=== PATIENT | male | born 1955 | race Caucasian/White ===

== ENCOUNTER 2019-04-22 08:51 | Inpatient (IN) | payer SELFPAY ==
[~2019-04-22] VITALS: Ht 177.8 cm; Wt 99.4 kg
[2019-04-22] MEDS ORDERED: LIDOCAINE 2%HCL (LOCAL ANESTH.) INJ 20ML MDV ONE (09:10)
[2019-04-22] MEDS ORDERED: ANGIOMAX 250 MG VIAL IV ONE (09:11)
[2019-04-22] MEDS ORDERED: fentaNYL CITRATE 100 MCG/2 ML VL ONE (09:11)
[2019-04-22] MEDS ORDERED: IODIXANOL 320MG/ML 100ML BTL IV ONE (09:11)
[2019-04-22] MEDS ORDERED: EPINEPHrine HCL 1 MG/1 ML AMP ONE (09:12)
[2019-04-22] MEDS ORDERED: SODIUM CHL 0.9% 50 ML ONE (09:12)
[2019-04-22] MEDS ORDERED: ATROPINE SULFATE 1 MG/1 ML VIAL ONE (09:12)
[2019-04-22] MEDS ORDERED: MIDAZOLAM HCL 1MG/1ML-2 ML VIAL ONE (09:12)
[2019-04-22] MEDS ORDERED: MORPHINE SULFATE 4 MG/ML SYR/VIAL IV ONE (09:15)
[2019-04-22] MEDS ORDERED: ONDANSETRON HCL 4 MG/2 ML VIAL IV ONE (09:15)
[2019-04-22 09:31] LABS: Basophils # (auto) 0 uL; Basophils % (auto) 0.2 % (0.0-2.0); Eosinophils # (auto) 0 uL; Eosinophils % (auto) 0.2 % (0.0-7.0); Hematocrit 45.9 % (41.0-53.0); Hemoglobin 15.2 g/dL (13.5-17.5); Lymphocytes % (auto) 8.6 % (10.0-50.0); Mean Corpuscular Hemoglobin 29.8 pg (28.0-32.0); Mean Corpuscular Hgb Conc. 33.2 g/dL (32.0-36.0); Mean Corpuscular Volume 89.7 fL (80.0-100.0); Monocytes # (auto) 0.5 uL; Monocytes % (auto) 4.4 % (0.0-12.0); Neutrophils # (auto) 9.6 uL; Neutrophils % (auto) 86.6 % (37.0-80.0); Platelet Count (auto) 234 10^3/uL (140-450); Red Blood Cells 5.12 10^6/uL (4.5-5.90); Red Cell Distribution Width 13.1 % (11.8-14.3); White Blood Cell 11.1 10^3/uL (4.4-10.8)
[2019-04-22 09:38] LABS: INR 0.96 (0.9-1.15)
[2019-04-22 09:44] LABS: Albumin 3.7 g/dL (3.4-5.0); BUN/Creatinine Ratio 11.1; Calcium 8.2 mg/dL (8.5-10.1); Magnesium 2.1 mg/dL (1.6-2.6); Potassium 3.7 mmol/L (3.5-5.1)
[2019-04-22] MEDS ORDERED: TICAGRELOR 90 MG TAB ONE (09:47)
[2019-04-22 09:49] LABS: Bilirubin, Total 0.4 mg/dL (0.2-1.0); Total Protein 7.1 g/dL (6.4-8.2)
[2019-04-22] MEDS ORDERED: hydrALAZINE HCL 20 MG/ML VL ONE (09:49)
[2019-04-22] MEDS ORDERED: ONDANSETRON HCL 4 MG/2 ML VIAL IV PRN (10:15)
[2019-04-22] MEDS ORDERED: ACETAMINOPHEN 500 MG TAB PO PRN (10:15)
[2019-04-22] MEDS ORDERED: HYDROcodone-ACET 5/325MG TAB PO PRN (10:15)
[2019-04-22] MEDS ORDERED: NITROGLYCERIN 0.4 MG SL TAB SL PRN (10:15)
[2019-04-22] MEDS ORDERED: CARVEDILOL 3.125 MG TAB PO ONE (10:45)
[2019-04-22] MEDS ORDERED: TICAGRELOR 90 MG TAB PO ONE (10:45)
[2019-04-22] MEDS ORDERED: LISINOPRIL 10 MG TAB PO ONE (10:45)
[2019-04-22] MEDS ORDERED: ASPirin-EC 81 mg tab PO ONE (10:45)
--- NOTE | 2019-04-22 14:22 | NUR ---
Report received from . ASHVIN PACK brought to bed 284 B following Left Cardiac catheterization, on monitoring and evaluation advisor and portable oxygen. Patient transfered to unit bed, connected to quality assurance monitor body #39 and oxygen. Catheterization site assessed for any bleeding, redness or swelling. Dressing clean dry and intact. Pedal pulses on affected leg assessed for positive tissue perfusion. Patient instructed on need to notify staff immediately if any pain, burning or wetness to site, and any lower back pain. Patient educated on new cardiac medications. All questions and concerns addressed, patient verbalized understanding of all education and instruction. See notes for any further.
[2019-04-22] MEDS ORDERED: POTASSIUM CHL 20 Meq TABLET PO ONE (14:30)
[2019-04-22] MEDS ORDERED: FUROSEMIDE 20 MG/2 ML VIAL IV ONE (14:30)
--- NOTE | 2019-04-22 15:47 | NUR ---
Critical Lab Received critical troponin of 85.8 at this time from Val in the lab. Will notify
--- NOTE | 2019-04-22 15:53 | NUR ---
Page to Dr. Bird Page to Dr. Bird at this time to notify of critical troponin lab. Awaiting callback.
--- NOTE | 2019-04-22 16:07 | NUR ---
Call from Dr. Bird Call from Dr. Bird. Made aware of critical troponin lab. 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 No new orders given.
[2019-04-22 16:57] VITALS: BP 149/93
--- NOTE | 2019-04-22 17:00 | NUR ---
Patient c/o nausea. Provided patient with emesis bag. Patient vomited. Will medicate as prescribed by MD.
--- NOTE | 2019-04-22 18:54 | NUR ---
Urine collected in sterile specimen container. Sent to lab via [employer] system.
--- NOTE | 2019-04-22 19:20 | NUR ---
assumed care, pt. awake, no c/o pain, dressing on rt. groin dry and intact, no sob.
[2019-04-22 21:24] VITALS: BP 130/94
[2019-04-22] MEDS: TICAGRELOR 90 MG TAB PO SCH (21:30)
[2019-04-22] MEDS: LISINOPRIL 10 MG TAB PO SCH (21:31)
[2019-04-22] MEDS: CARVEDILOL 3.125 MG TAB PO SCH (21:31)
[2019-04-22] MEDS ORDERED: ATORVASTATIN 20 MG TAB PO SCH (22:00)
[2019-04-23 05:10] VITALS: BP 142/92
[2019-04-23 06:40] LABS: Basophils # (auto) 0 uL; Basophils % (auto) 0.1 % (0.0-2.0); Eosinophils # (auto) 0 uL; Eosinophils % (auto) 0.3 % (0.0-7.0); Hematocrit 43.1 % (41.0-53.0); Hemoglobin 15.1 g/dL (13.5-17.5); Lymphocytes # (auto) 1.3 uL; Mean Corpuscular Hemoglobin 30.7 pg (28.0-32.0); Mean Corpuscular Volume 87.8 fL (80.0-100.0); Monocytes # (auto) 0.9 uL; Monocytes % (auto) 8.7 % (0.0-12.0); Neutrophils # (auto) 8.5 uL; Neutrophils % (auto) 78.9 % (37.0-80.0); Platelet Count (auto) 209 10^3/uL (140-450); White Blood Cell 10.8 10^3/uL (4.4-10.8)
[2019-04-23 07:06] LABS: BUN/Creatinine Ratio 12.2; Calcium 8.5 mg/dL (8.5-10.1); Potassium 3.5 mmol/L (3.5-5.1)
[2019-04-23 07:13] LABS: Cholesterol 178 mg/dL (< 200); Triglycerides 88 mg/dL (< 150)
[2019-04-23 07:15] LABS: HDL Cholesterol 41 mg/dL (40-59); LDL Cholesterol 133 mg/dL (< 100)
--- NOTE | 2019-04-23 07:47 | NUR ---
Opening Patient awake, in bed, bed in lowest position, call light within reach. no distress noted at this time. Assessed dressing site to right groin, c/d/i with gauze and tegaderm, felt softness around the site, no hard/formed nodules. No c/o pain will continue to monitor this patient. patient is s/p LHC with md GENAO 04/22/19 stent placed to the LAD Echo 35% CXR negative UA pending results, according to notes have been sent. Trop 85.8 elevated postop noc nurse states Aquilino is aware. Will f/u with morning assessment
[2019-04-23 08:00] VITALS: BP 159/91
[2019-04-23] MEDS: TICAGRELOR 90 MG TAB PO SCH (09:53)
[2019-04-23] MEDS: LISINOPRIL 10 MG TAB PO SCH (09:54)
[2019-04-23] MEDS: CARVEDILOL 3.125 MG TAB PO SCH (09:54)
[2019-04-23] MEDS ORDERED: ASPirin-EC 81 mg tab PO SCH (10:00)
[2019-04-23 12:00] VITALS: BP 143/88
[2019-04-23] MEDS ORDERED: ASP81EC PO (12:00)
[2019-04-23] MEDS ORDERED: NITR0.4S29 SL (12:00)
[2019-04-23] MEDS ORDERED: ATOR20TA50 PO (12:00)
[2019-04-23] MEDS ORDERED: CAR3125T PO (12:00)
[2019-04-23] MEDS ORDERED: TICA90TA PO (12:00)
[2019-04-23] MEDS ORDERED: LISI10TA6 PO (12:00)
== END 2019-04-23 14:30 | disposition home or self-care (01) | DRG 246 ==
LOC: ER 08:57 → CATH 1 08:58 → TELE-WESTW 15:28
PROVIDERS: ADMIT Internal Medicine; ATTEND Internal Medicine
PROC: 027034Z Dilation of Coronary Artery, One Artery with Drug-eluting Intraluminal Device, Percutaneous Approach (ICD-10-PCS; principal; 2019-04-22)
PROC: 4A023N7 Measurement of Cardiac Sampling and Pressure, Left Heart, Percutaneous Approach (ICD-10-PCS; 2019-04-22)
PROC: B2111ZZ Fluoroscopy of Multiple Coronary Arteries using Low Osmolar Contrast (ICD-10-PCS; 2019-04-22)
PROC: B2151ZZ Fluoroscopy of Left Heart using Low Osmolar Contrast (ICD-10-PCS; 2019-04-22)
DX: I21.3 ST elevation (STEMI) myocardial infarction of unspecified site (principal); I50.41 Acute combined systolic (congestive) and diastolic (congestive) heart failure; I11.0 Hypertensive heart disease with heart failure; I25.10 Atherosclerotic heart disease of native coronary artery without angina pectoris; F12.10 Cannabis abuse, uncomplicated; J44.9 Chronic obstructive pulmonary disease, unspecified; R55 Syncope and collapse; G47.62 Sleep related leg cramps; F19.10 Other psychoactive substance abuse, uncomplicated; I25.5 Ischemic cardiomyopathy; Z82.49 Family history of ischemic heart disease and other diseases of the circulatory system; I25.2 Old myocardial infarction; Z91.19 Patient's noncompliance with other medical treatment and regimen; Z87.891 Personal history of nicotine dependence
CPT/HCPCS: 36415; 71045; 80048; 80053; 80061; 83735; 84443; 84484; 85025; 85610; 85730; 93005; 93306; 94761; 96374; 96375; G0378; J0171; J0461; J2250; J2405; Q9967